=== PATIENT | male | born 1945 ===

== ENCOUNTER 2016-12-29 06:26 | Day surgery (SDC) | payer MEDICARE, OTHER ==
[2016-12-24 15:28] VITALS: BMI 22.7
[2016-12-29 07:17] LABS: BLOOD UREA NITROGEN 16 mg/dL (7-21); CALCIUM 9.4 mg/dL (8.4-10.5); CARBON DIOXIDE 32 mmol/L (21-33); CHLORIDE 100 mmol/L (98-107); GFR AFRICAN-AMERICAN > 60; GLUCOSE,RANDOM 144 mg/dL (70-110); POTASSIUM 4.9 mmol/L (3.6-5.0); SODIUM 142 mmol/L (132-148)
[2016-12-29 07:22] VITALS: RESP 18; O2SAT 99
[2016-12-29] MEDS ORDERED: Lidocaine 2% Inj (20ml) ONE (08:15)
[2016-12-29] MEDS ORDERED: Midazolam 2 MG/2 ML VIAL ONE (08:29)
[2016-12-29] MEDS ORDERED: Sodium Chloride 0.9% 1,000 ML IV SCH (09:30)
[2016-12-29 09:42] VITALS: TEMP 98.3
[2016-12-29 11:47] VITALS: BP 122/70; PULSE 63
--- NOTE | 2016-12-29 18:14 | CARDCATH ---
PROCEDURE DATE: 12/29/2016 PROCEDURES: 1. Selective left and right coronary angiography. 2. Right and left heart catheterization. 3. Right femoral arteriography. 4. Angio-Seal deployment. HISTORY: This is a 71-year-old man with history of diabetes, hypertension and aortic stenosis. He has had worsening dizziness and evidence of severe aortic stenosis on echocardiography. Cardiac catheterization was recommended. HEMODYNAMICS: The right heart pressures were as follows: The RA pressure was 3, RV pressure was 24/2, the PA pressure was 22/8 with a wedge pressure of 11. The cardiac output was 4.7 L/min by thermodilution method. A 15 mmHg aortic valve gradient was noted on catheter pullback with a calculated aortic valve area of 0.67 cm2 by modified Gorlin formula. CORONARY ANATOMY: 1. The left mainstem was normal. 2. The left anterior descending artery and its branches were normal as well. 3. The left circumflex artery and its branches were normal as well. 4. The right coronary artery was dominant and normal. LEFT VENTRICULOGRAPHY: A left ventriculogram was performed with hand injection only in the [place]SH[place] projection. This revealed normal wall motion with an ejection fraction of 75%. Mitral regurgitation was not assessed. The aortic valve gradient of 15 mmHg was noted as previously reported. RIGHT FEMORAL ARTERIOGRAPHY: A right femoral arteriogram was performed in the [place]SHALL projection. This revealed no evidence of significant disease and appropriate level of arterial punch. The puncture site was then closed with deployment of an Angio-Seal device. CONCLUSION: 1. Severe aortic stenosis. 2. Normal left ventricular function. 3. Normal coronary arteries. RECOMMENDATIONS: Given the above findings, evaluation for aortic valve replacement will be recommended. Brandon Godinez MD
== END 2016-12-29 13:39 | disposition home or self-care (01) ==
LOC: CATH 06:26
PROVIDERS: ATTEND Internal Medicine Cardiovascular Disease
DX: I35.0 Nonrheumatic aortic (valve) stenosis (principal); I10 Essential (primary) hypertension; E11.9 Type 2 diabetes mellitus without complications
CPT/HCPCS: 36415; 80048; 86850; 86900; 93460; 99152; 99153; C1760; C1769 ×2; C1894; C2629; J1644; J2250; J3010; J7040 ×2; Q9967